=== PATIENT | female | born 1970 | race Two or more races ===

== ENCOUNTER 2017-04-12 12:56 | Emergency (ER) | payer MEDICAID ==
[~2017-04-12] VITALS: Ht 160 cm; Wt 65.8 kg
[~2017-04-12 12:56] MED LIST: IBUPROFEN600 MG ORAL
[2017-04-12] MEDS ORDERED: QVAR7.3 GM INH (13:07)
[2017-04-12] MEDS ORDERED: VENTOLIN HFA18 GM INH (13:07)
[2017-04-12] MEDS ORDERED: Ketorolac 60mg Inj IM ONE (13:30)
--- NOTE | 2017-04-12 13:35 | Emergency Room Report ---
History of Present Illness General Chief Complaint: Back Pain-No Injury Source: Patient Present Illness HPI 47-year-old female presents to the emergency department complaining of 8/10 in severity bilateral low back pain that she locates near the sacrum and upper gluteal area x2 days. Patient reports acute onset the morning following a long walks/jogs in the park for which she does not normally do. She denies trauma or fall she denies history of previous symptoms. Patient reports frequency she denies dysuria, abdominal pain, fevers, chills, hematuria. Patient states that pain is exacerbated upon trying to pull something heavier lifting something in addition to bending over. Patient states she took Tylenol yesterday which only provided some temporary mild relief but did not completely take her pain away. She denies trauma or fall otherwise. Denies recent spinal procedures or history of neoplastic disease. Denies numbness tingling or loss of sensation or gross motor movements of the extremities, incontinence of bowel or bladder. Denies CP, Palpitations, LOC, AMS, dizziness, Changes in Vision, Sensation, paresthesias, or a sudden severe headache. Allergies: Coded Allergies: PENICILLINS (Verified Allergy, Severe, 11/15/14) Patient History Past Medical History: see triage record Past Surgical History: none Pertinent Family History: none Last Menstrual Period: 03/22/17 Now: No : 5 Para: 3 Reviewed Nursing Documentation: PMH: Agreed, PSxH: Agreed Nursing Documentation-PMH Hx Asthma: Yes Review of Systems All Other Systems: negative except mentioned in HPI Physical Exam Vital Signs Date Time Temp Pulse Resp B/P (MAP) Pulse Ox O2 Delivery O2 Flow Rate FiO2 04/12/17 13:03 99.0 79 16 110/71 97 Room Air 99.0 Sp02 EP Interpretation: reviewed, normal General Appearance: alert, GCS 15, non-toxic, mild distress Head: normocephalic, atraumatic ENT: hearing grossly normal, normal voice Neck: full range of motion Respiratory: lungs clear, normal breath sounds, speaking full sentences Cardiovascular #1: regular rate, rhythm, normal capillary refill Gastrointestinal: non tender, soft Rectal: deferred Genitourinary: normal inspection, no CVA tenderness Musculoskeletal: back normal, gait/station normal, normal range of motion - with pain upon forward flexion, tender - Tenderness to palpation to paraspinal muscles of the lower back: around S1 area, NO CVA, no spinous process tenderness, no midline tenderness Neurologic: alert, oriented x3, responsive, motor strength/tone normal, sensory intact, speech normal, grossly normal Psychiatric: judgement/insight normal Skin: normal color, no rash, warm/dry, well hydrated Medical Decision Making PA Attestation Dr. Tejeda is my supervising Physician whom patient management has been discussed with. Diagnostic Impression: Primary Impression: Back pain Qualified Codes: M54.42 - Lumbago with sciatica, left side; M54.41 - Lumbago with sciatica, right side Additional Impression: UTI (urinary tract infection) Qualified Codes: N30.00 - Acute cystitis without hematuria ER Course 47-year-old female presents to the emergency department complaining of 8/10 in severity bilateral low back pain that she locates near the sacrum and upper gluteal area x2 days. Patient reports acute onset the morning following a long walks/jogs in the park for which she does not normally do. She denies trauma or fall she denies history of previous symptoms. Patient reports frequency she denies dysuria, abdominal pain, fevers, chills, hematuria. Patient states that pain is exacerbated upon trying to pull something heavier lifting something in addition to bending over. Patient states she took Tylenol yesterday which only provided some temporary mild relief but did not completely take her pain away. She denies trauma or fall otherwise. Denies recent spinal procedures or history of neoplastic disease. Denies numbness tingling or loss of sensation or gross motor movements of the extremities, incontinence of bowel or bladder. Denies CP, Palpitations, LOC, AMS, dizziness, Changes in Vision, Sensation, paresthesias, or a sudden severe headache. Ddx considered: epidural abscess, fracture, sprain/strain, meningitis, spinal chord injury. Vital signs reviewed and are WNL during ED visit. Pt. is afebrile with no signs of infection No new symptoms, and denies recent trauma. No saddle anesthesia noted, Pt. denies incontinence Neurovascular is intact FROM * Mild Tenderness to palpation to paraspinal muscles of the lower back: around S1 area, NO CVA, no spinous process tenderness, no midline tenderness. *Pt. describes pain today as moderate and radiates across the lower back. ORDERS: -UA: presence of bacteria with increased inflammatory markers - positive UTI INTERVENTIONS: - 15 mg IM Toradol D/W Pt. that for further pain management is it recommended to consult PCP or a Chronic Pain management doctor. A provider who can safely prescribe controlled substances with close follow up. DISCHARGE: At this time pt. is stable for d/c to home. Will provide printed patient care instructions, and any necessary prescriptions. Care plan and follow up instructions have been discussed with the patient prior to discharge. Labs Test 04/12/17 13:14 Urine Color Yellow Urine Appearance Cloudy Urine pH 5 (4.5-8.0) Urine Specific [place] 1.025 (1.005-1.035) Urine Protein 1+ (NEGATIVE) Urine Glucose (UA) Negative (NEGATIVE) Urine Ketones Negative (NEGATIVE) Urine Occult Blood Negative (NEGATIVE) Urine Nitrite Negative (NEGATIVE) Urine Bilirubin Negative (NEGATIVE) Urine Urobilinogen Normal MG/DL (0.0-1.0) Urine Leukocyte Esterase 2+ (NEGATIVE) Urine RBC 2-4 /HPF (0 - 2) Urine WBC 5-10 /HPF (0 - 2) Urine Squamous Epithelial Cells Moderate /LPF (NONE/OCC) Urine Bacteria Few /HPF (NONE) Urine Mucus Moderate /LPF (NONE/OCC) Last Vital Signs Date Time Temp Pulse Resp B/P (MAP) Pulse Ox O2 Delivery O2 Flow Rate FiO2 04/12/17 13:03 99.0 79 16 110/71 97 Room Air 99.0 Disposition: HOME, SELF-CARE Condition: Stable Scripts Nitrofurantoin Monohyd/M-Cryst* (MACROBID 100 MG*) 100 Mg Capsule 100 MG ORAL EVERY 12 HOURS for 5 Days, #10 CAP Prov: Sandy Benoit 04/12/17 Lidocaine (Lidoderm) 1 Each Adh..patch 1 PATCH TOPIC DAILY, #30 PATCH 0 Refills Patch(es) may remain in place for up to 12 hours in any 24-hour period. Prov: Sandy Benoit 04/12/17 Methocarbamol* (ROBAXIN*) 500 Mg Tablet 1000 MG PO TID for 7 Days, #42 TAB 0 Refills Prov: Sandy Benoit 04/12/17 Referrals: [facility],REFERRING (PCP) Patient Instructions: Back Pain, Adult, Urinary Tract Infection, [id number] Additional Instructions: Take medications as directed. Follow up with a Primary Care Provider in 3-5 days, even if your symptoms have resolved. --Please review list of primary care clinics, if you do not already have a primary care provider Return sooner to ED if new symptoms occur, or current symptoms become worse. Do not drink alcohol, drive, or operate heavy machinery while taking Muscle Relaxers as this may cause drowsiness. - Please note that this Emergency Department Report was dictated using [employer] fix[employer] technology software, occasionally this can lead to erroneous entry secondary to interpretation by the dictation equipment. Sandy Benoit Apr 12, 2017 13:34
[2017-04-12] MEDS ORDERED: LIDODERM700 M1 TOPIC (13:36)
[2017-04-12] MEDS ORDERED: ROBAXIN500 MG PO (13:36)
[2017-04-12 13:41] LABS: APPEARANCE,URINE CLOUDY; BILIRUBIN, URINE NEGATIVE (NEGATIVE); GLUCOSE, URINE (UA) NEGATIVE (NEGATIVE); KETONES,URINE NEGATIVE (NEGATIVE); LEUKOCYTE ESTERASE ,URINE 2+ (NEGATIVE); NITRITE,URINE NEGATIVE (NEGATIVE); PH,URINE 5 (4.5-8.0); PROTEIN,URINE 1+ (NEGATIVE); UROBILINOGEN,URINE NORMAL MG/DL (0.0-1.0)
[2017-04-12 13:55] LABS: COLOR,URINE YELLOW
[2017-04-12] MEDS ORDERED: NITROFURANTOIN100 M2 ORAL (14:25)
[2017-04-12 14:28] VITALS: BP 104/61
[2017-04-12 14:36] VITALS: BP 104/61
== END 2017-04-12 14:38 | disposition home or self-care (01) ==
LOC: EMR 13:22
DX: N39.0 Urinary tract infection, site not specified (principal); J45.909 Unspecified asthma, uncomplicated; Z88.0 Allergy status to penicillin
CPT/HCPCS: 81003; 96372; 99283; 99284

== ENCOUNTER 2017-10-22 11:01 | Emergency (ER) | payer MEDICAID ==
[~2017-10-22] VITALS: Ht 152.4 cm; Wt 65.8 kg
[~2017-10-22 11:01] MED LIST changes: +LIDODERM700 M1 TOPIC; +NITROFURANTOIN100 M2 ORAL; +QVAR7.3 GM INH; +ROBAXIN500 MG PO; +VENTOLIN HFA18 GM INH
[2017-10-22 11:35] VITALS: BP 116/61
[2017-10-22 11:57] VITALS: BP 116/61
--- NOTE | 2017-10-22 15:11 | Emergency Room Report ---
History of Present Illness General Chief Complaint: Eye Problems Source: Patient Present Illness HPI Patient's a 47-year-old female who presented after increased right eye discomfort. She denies any recent trauma. She reports having increased redness to the lateral aspect of the right eye. She denies any visual changes. She denies recent cough or straining. She denies any other locations of bleeding. She denied heavy menses. Allergies: Coded Allergies: PENICILLINS (Verified Allergy, Severe, 11/15/14) Patient History Past Medical History: see triage record Now: No Reviewed Nursing Documentation: PMH: Agreed; PSxH: Agreed Nursing Documentation-PMH Past Medical History: No History, Except For Hx Asthma: Yes Review of Systems All Other Systems: negative except mentioned in HPI Physical Exam Vital Signs Date Time Temp Pulse Resp B/P (MAP) Pulse Ox O2 Delivery O2 Flow Rate FiO2 10/22/17 11:31 98.3 70 18 116/61 98 Room Air 98.2 General Appearance: well appearing, no apparent distress, alert, GCS 15 Head: normocephalic, atraumatic Eyes: bilateral eye other - right eye lateral subconjunctival hemorrhage ENT: hearing grossly normal, normal voice Neck: full range of motion, supple Respiratory: no respiratory distress, speaking full sentences Cardiovascular #1: normal inspection Musculoskeletal: no calf tenderness Neurologic: normal gait Psychiatric: mood/affect normal Skin: no rash Medical Decision Making Diagnostic Impression: Primary Impression: Subconjunctival edema of right eye ER Course Patient presented for redness to the lateral aspect of her eye. differential diagnosis included was not limited to subconjunctival hemorrhage, coagulopathy, thrombocytopenia. Conjunctivitis among others. Patient has a benign exam and does not appear to require any further imaging or laboratory testing at this time. The patient does not show any evidence of bleeding other locations concerning for coagulopathy. Patient was advised follow-up with ophthalmology for reexamination. Patient was advised that this would likely spontaneously regress.The patient is advised to follow up with primary care doctor in 1-2 days. Patient is advised to return if any worsening condition or if any changes in status that are concerning. This report is dictated with [employer] front end software engineer software which may occasionally lead to discrepancies related to use of this software. Last Vital Signs Date Time Temp Pulse Resp B/P (MAP) Pulse Ox O2 Delivery O2 Flow Rate FiO2 9/9/18 11:57 98.2 70 18 116/61 98 Room Air 98.2 Status: improved Disposition: HOME, SELF-CARE Condition: Stable Referrals: NON PHYSICIAN (PCP) Patient Instructions: Subconjunctival Hemorrhage Kushal Guillen MD Oct 22, 2017 15:11
== END 2017-10-22 11:58 | disposition home or self-care (01) ==
LOC: EMR 11:44
DX: H11.421 Conjunctival edema, right eye (principal)
CPT/HCPCS: 99282